=== PATIENT | female | born 1980 | race Caucasian/White ===

== ENCOUNTER 2019-01-19 21:07 | Emergency (ER) | payer SELFPAY ==
[2019-01-19] MEDS ORDERED: ONDANSETRON 4 MG/2 ML VIAL IVPUSH ONE (21:15)
--- NOTE | 2019-01-19 21:17 | PDOC ---
Rapid Medical Evaluation Time Seen by Provider: 01/19/19 21:13 Medical Evaluation: Allergies Allergy/AdvReac Type Severity Reaction Status Date / Time Sulfa (Sulfonamide Allergy Verified 06/14/15 18:19 Antibiotics) 01/19/19 21:13 HPI: abdominal pain, nausea, and diziness x days PE:no gross deficits ORDERS: labs, zofran, U preg Discharge Disposition - Diagnosis Abdominal pain - Referrals - Patient Instructions - Post Discharge Activity
[2019-01-19 21:24] VITALS: BMI 33.3
[2019-01-19] MEDS ORDERED: FAMOTIDINE 20 MG/50 ML IVPB 20 MG/50 ML MG IVPB ONE ×2 (22:08→22:59)
[2019-01-19] MEDS ORDERED: ACETAMINOPHEN 1000 MG/100 ML VIAL (NON FORMULARY) IVPB ONE (22:08)
[2019-01-19] MEDS ORDERED: MAG HYDROX/AL HYDROX/SIMETH 30 ML UNIT-DOSE CUP PO ONE (22:08)
[2019-01-19 22:47] LABS: BASO % 0.7 % (0-2.0); HEMATOCRIT 40.5 % (32.4-45.2); HEMOGLOBIN 13.7 GM/dL (10.7-15.3); LYMPH % 30.9 % (8-40); MCH 28.3 pg (25.7-33.7); MCHC 33.8 g/dl (32.0-36.0); MEAN CELL VOLUME 83.7 fl (80-96); MEAN PLT VOLUME 6.9 fl (7.5-11.1); NEUT % 60.4 % (42.8-82.8); RBC 4.84 M/mm3 (3.60-5.2); RDW 13.3 % (11.6-15.6); WHITE BLOOD COUNT 8.8 K/mm3 (4.0-10.0)
[2019-01-19] MEDS ORDERED: ACETAMINOPHEN INJECTION 100 ML IVPB ONE (22:59)
[2019-01-19] MEDS ORDERED: MAG HYDROX/AL HYDROX/SIMETH 30 ML UNIT-DOSE CUP ONE (22:59)
[2019-01-19] MEDS ORDERED: ONDANSETRON 4 MG/2 ML VIAL ONE (22:59)
[2019-01-19 23:12] LABS: ALBUMIN 3.8 g/dl (3.4-5.0); BILIRUBIN,TOTAL 0.4 mg/dL (0.2-1); CALCIUM 9.1 mg/dL (8.5-10.1); CREATININE 0.7 mg/dL (0.55-1.3); POTASSIUM 3.5 mmol/L (3.5-5.1); TOT PROT 6.8 g/dl (6.4-8.2)
[2019-01-19 23:35] LABS: PLATELET COUNT 405 K/MM3 (134-434)
[2019-01-20 00:57] LABS: URINE APPEARANCE CLEAR; URINE BILIRUBIN NEGATIVE (NEGATIVE); URINE COLOR YELLOW; URINE GLUCOSE (UA) NEGATIVE (NEGATIVE); URINE KETONE NEGATIVE (NEGATIVE); URINE LEUK ESTERASE NEGATIVE (NEGATIVE); URINE NITRITE NEGATIVE (NEGATIVE); URINE PROTEIN NEGATIVE (NEGATIVE); URINE UROBILINOGEN 0.2 mg/dL (0.2-1.0)
[2019-01-20] MEDS ORDERED: ONDANSETRON 4 MG/2 ML VIAL IVPUSH ONE (01:20)
[2019-01-20] MEDS ORDERED: ONDANSETRON 4 MG/2 ML VIAL ONE ×2 (01:22→03:11)
[2019-01-20] MEDS ORDERED: ONDANSETRON 4 MG/2 ML VIAL IVPB ONE (03:05)
[2019-01-20] MEDS ORDERED: PANTOPRAZOLE SODIUM 40 MG VIAL IVPUSH ONE (03:05)
[2019-01-20] MEDS ORDERED: PANTOPRAZOLE SODIUM 40 MG VIAL ONE (03:12)
[2019-01-20 03:39] VITALS: BP 112/59; PULSE 79; TEMP 98.1
--- NOTE | 2019-01-20 03:46 | PDOC ---
Documentation entered by Ida Perez SCRIBE, acting as scribe for Leonardo Alcantar MD. Leonardo Alcantar MD: This documentation has been prepared by the Chris medley Sammi, SCRIBE, under my direction and personally reviewed by me in its entirety. I confirm that the documentation accurately reflects all work, treatment, procedures, and medical decision making performed by me. History of Present Illness - General Chief Complaint: Pain Stated Complaint: PAIN & NAUSEA Time Seen by Provider: 01/19/19 21:13 History Source: Patient Exam Limitations: No Limitations - History of Present Illness Initial Comments: 01/19/19 22:19 The patient is a 38 year old female, with a significant PMH of high cholesterol , GERD, who presents to the emergency department for evaluation of 3 episodes of diarrhea today, 3 episodes of diarrhea yesterday, and 1 episode of vomiting 2 days ago. The patient reports she has not been able to eat solid food since the episode of vomiting 2 days ago. She endorses diffuse abdominal pain concentrated to the epigastric region. The patient notes chills and dizziness that is worse on exertion. Allergies: NKA Past History - Past Medical History Allergies/Adverse Reactions: Allergies Allergy/AdvReac Type Severity Reaction Status Date / Time Sulfa (Sulfonamide Allergy Verified 01/19/19 21:22 Antibiotics) Home Medications: Ambulatory Orders Mag Hydrox/Aluminum Hyd/Simeth [Maalox Advanced Suspension] 30 ml PO Q6H PRN # 10 oral.susp 01/20/19 Ondansetron HCl [Zofran] 4 mg PO Q8H PRN #15 tablet 01/20/19 Ranitidine HCl [Zantac] 150 mg PO BID PRN #20 tablet 01/20/19 COPD: No GI Disorders: Yes (GASTRITIS,CELIAC) Other medical history: lymphaedema - Suicide/Smoking/Psychosocial Hx Smoking History: Smoker current status UNK Have you smoked in the past 12 months: No Number of Cigarettes Smoked Daily: 10 Information on smoking cessation initiated: No Hx Alcohol Use: No Drug/Substance Use Hx: No Substance Use Type: Alcohol Review of Systems - Review of Systems Comments:: 01/19/19 22:19 GENERAL/CONSTITUTIONAL: No fever or chills. No weakness. HEAD, EYES, EARS, NOSE AND THROAT: No change in vision. No ear pain or discharge. No sore throat. CARDIOVASCULAR: No chest pain or shortness of breath. RESPIRATORY: No cough, wheezing, or hemoptysis. GASTROINTESTINAL: (+)diffuse abdominal pain concentrated to epigastric area (+) nausea (+)vomiting (+)diarrhea GENITOURINARY: No dysuria, frequency, or change in urination. MUSCULOSKELETAL: No joint or muscle swelling or pain. No neck or back pain. SKIN: No rash NEUROLOGIC: No headache, vertigo, loss of consciousness, or change in strength/ sensation. *Physical Exam - Vital Signs Last Vital Signs Temp Pulse Resp BP Pulse Ox 97.8 F 77 16 117/66 100 01/19/19 21:17 01/19/19 21:17 01/19/19 21:17 01/19/19 21:17 01/19/19 21:17 - Physical Exam Comments: 01/19/19 22:52 GENERAL: Awake, alert, and fully oriented, in no acute distress HEAD: No signs of trauma EYES: PERRLA, EOMI, sclera anicteric, conjunctiva clear ENT: Auricles normal inspection, hearing grossly normal, nares patent, oropharynx clear without exudates. Moist mucosa NECK: Normal ROM, supple, no lymphadenopathy, JVD, or masses LUNGS: Breath sounds equal, clear to auscultation bilaterally. No wheezes, and no crackles HEART: Regular rate and rhythm, normal S1 and S2, no murmurs, rubs or gallops ABDOMEN: (+)RUQ tenderness to palpation (+)epigastric tenderness. Negative lagunas's sign. Soft, normoactive bowel sounds. No guarding, no rebound. No masses EXTREMITIES: Normal range of motion, no edema. No clubbing or cyanosis. No cords, erythema, or tenderness NEUROLOGICAL: Cranial nerves II through XII grossly intact. Normal speech, normal gait SKIN: Warm, Dry, normal turgor, no rashes or lesions noted. ED Treatment Course - LABORATORY CBC & Chemistry Diagram: 01/19/19 22:33 01/19/19 22:33 - ADDITIONAL ORDERS Additional order review: Laboratory Results 01/20/19 01/20/19 01/19/19 01:00 00:47 22:33 Sodium 138 Potassium 3.5 Chloride 105 Carbon Dioxide 25 Anion Gap 8 BUN 6.0 L Creatinine 0.7 Est GFR (CKD-EPI)AfAm 129.19 Est GFR (CKD-EPI)NonAf 111.47 Random Glucose 100 Calcium 9.1 Total Bilirubin 0.4 AST 16 ALT 21 Alkaline Phosphatase 65 Total Protein 6.8 Albumin 3.8 Lipase 245 Urine Color Yellow Urine Appearance Clear Urine pH 7.0 Ur Specific [place] 1.012 Urine Protein Negative Urine Glucose (UA) Negative Urine Ketones Negative Urine Blood Negative Urine Nitrite Negative Urine Bilirubin Negative Urine Urobilinogen 0.2 Ur Leukocyte Esterase Negative Urine HCG, Qual Negative 01/19/19 22:33 RBC 4.84 MCV 83.7 MCHC 33.8 RDW 13.3 MPV 6.9 L Neutrophils % 60.4 Lymphocytes % 30.9 Monocytes % 7.0 Eosinophils % 1.0 Basophils % 0.7 - RADIOLOGY Radiology Studies Ordered: Category Date Time Status ABDOMEN & PELVIS CT WITH CONTR [CT] Stat CT Scan 01/20/19 02:04 Taken ABDOMEN US -LIMITED [US] Stat Ultrasound 01/19/19 22:08 Taken - Medications Given in the ED: ED Medications Discontinued Medications Generic Name Dose Route Start Last Admin Trade Name Chaz PRN Reason Stop Dose Admin Acetaminophen 1,000 mg 01/19/19 22:08 01/19/19 23:11 Ofirmev Injection - IVPB 01/19/19 22:09 1,000 mg ONCE ONE Administration Al Hydroxide/Mg Hydroxide 30 ml 01/19/19 22:08 01/19/19 23:11 Mylanta Oral Suspension - PO 01/19/19 22:09 30 ml ONCE ONE Administration Famotidine/Sodium Chloride 20 mg in 50 mls @ 100 mls/hr 01/19/19 22:08 23:11 Pepcid 20 Mg Premixed Ivpb - IVPB 01/19/19 22:37 100 mls/hr ONCE ONE Administration Ondansetron HCl 4 mg 01/19/19 21:15 01/19/19 23:11 Zofran Injection IVPUSH 01/19/19 21:16 4 mg ONCE ONE Administration Ondansetron HCl 4 mg 01/20/19 01:20 01/20/19 01:28 Zofran Injection IVPUSH 01/20/19 01:21 4 mg ONCE ONE Administration Ondansetron HCl 4 mg 01/20/19 03:05 01/20/19 03:21 Zofran Injection IVPB 01/20/19 03:06 4 mg ONCE ONE Administration Pantoprazole Sodium 40 mg 01/20/19 03:05 01/20/19 03:21 Protonix Iv IVPUSH 01/20/19 03:06 40 mg ONCE ONE Administration Medical Decision Making - Medical Decision Making 01/20/19 03:47 A portion of this note was documented by scribe services under my direction. I have reviewed the details of the note, within reason, and agree with the documentation with the following case summary and management plan written by me. Patient treated in the ED. Nursing notes are reviewed and incorporated into the medical decision-making. Vital signs reviewed. Peripheral IV access obtained by the nurse, laboratory studies are drawn and sent, reviewed and interpreted by myself. Vital Signs Temp Pulse Resp BP Pulse Ox 98.1 F 79 16 112/59 L 98 01/20/19 03:38 01/20/19 03:38 01/19/19 21:17 01/20/19 03:38 01/20/19 03:38 38-year-old female patient with history *DC/Admit/Observation/Transfer Diagnosis at time of Disposition: Gastroenteritis - Discharge Dispostion Disposition: HOME Condition at time of disposition: Improved Decision to Admit order: No - Prescriptions Prescriptions: Mag Hydrox/Aluminum Hyd/Simeth [Maalox Advanced Suspension] 30 ml PO Q6H PRN # 10 oral.susp PRN Reason: Abdominal Pain Ondansetron HCl [Zofran] 4 mg PO Q8H PRN #15 tablet PRN Reason: Nausea Ranitidine HCl [Zantac] 150 mg PO BID PRN #20 tablet PRN Reason: GERD - Referrals Referrals: Sheldon Salas MD [Staff Physician] - Sylvain Garduno MD [Staff Physician] - - Patient Instructions Printed Discharge Instructions: DI for Viral Gastroenteritis -- Adult Additional Instructions: Your symptoms are likely secondary to a viral illness or food poisoning. Your CT scan of the abdomen shows no acute findings. Your ultrasound of your abdomen shows a fatty liver. Your blood work and urine work shows no findings. At this time, you should continue to take 40 mg omeprazole daily and follow up with a GI doctor. For additional relief, take 150 mg zantac every 12 hours as needed for additional relief. Take zofran every 8 hours as needed for nausea. Drink plenty of fluids and rest. Please make an appointment with a general doctor and GI physician. - Post Discharge Activity
--- NOTE | 2019-01-21 13:35 | EKG ---
Test Reason : Blood Pressure : / mmHG Vent. Rate : 076 BPM Atrial Rate : 076 BPM P-R Int : 138 ms QRS Dur : 084 ms QT Int : 416 ms P-R-T Axes : 016 004 016 degrees QTc Int : 468 ms NORMAL SINUS RHYTHM CANNOT RULE OUT ANTERIOR INFARCT , AGE UNDETERMINED CANNOT RULE OUT INFERIOR INFARCT ABNORMAL ECG NO PREVIOUS ECGS AVAILABLE Confirmed by MD ANTONI, IMMANUEL ([id number]) on 01/21/2019 1:35:25 PM Referred By: Confirmed By:IMMANUEL CORRALES MD
== END 2019-01-20 04:07 | disposition home or self-care (01) ==
LOC: JER 21:07
PROC: 3E033GC Introduction of Other Therapeutic Substance into Peripheral Vein, Percutaneous Approach (ICD-10-PCS; principal; 2019-01-19)
PROC: 3E033GC Introduction of Other Therapeutic Substance into Peripheral Vein, Percutaneous Approach (ICD-10-PCS; 2019-01-19)
PROC: 3E033GC Introduction of Other Therapeutic Substance into Peripheral Vein, Percutaneous Approach (ICD-10-PCS; 2019-01-19)
PROC: 3E033NZ Introduction of Analgesics, Hypnotics, Sedatives into Peripheral Vein, Percutaneous Approach (ICD-10-PCS; 2019-01-19)
DX: K52.9 Noninfective gastroenteritis and colitis, unspecified (principal); Z87.19 Personal history of other diseases of the digestive system
CPT/HCPCS: 36415; 74177-TC; 76705-TC; 80053; 81003; 83690; 84703; 85025; 93005; 93010; 99283-25; J0131